=== PATIENT | female | born 1990 | race Two or more races ===

== ENCOUNTER 2018-11-19 18:45 | Emergency (ER) | payer OTHER ==
--- NOTE | 2018-11-19 18:57 | PDOC ---
History of Present Illness - History of Present Illness Initial Comments: 28yo F with PMH of PCOS presenting with nausea, vomiting, diarrhea, and abdominal pain. Patient states her symptoms started around 11am. She has over ten nonbloody nonbilious episodes of vomiting. Patient has had four or five episodes of nonbloody watery diarrhea. Abdominal pain is located in the suprapubic region. Pain is currently rated 10/10 and is described as "ripping. " Has not been able to tolerate po intake today. Has not recently eaten anything unusual except some 'alkaline water' yesterday. Patient took alleve and zantac at home today with minimal relief of symptoms. No history of abdominal surgeries. Denies urinary symptoms. She is currently on day two of her menstrual period. Has not been around anyone sick. No recent travel. Denies fever, but endorses chills. No chest pain or shortness of breath. <Lyssa Almazan - Last Filed: 11/20/18 00:06> <Kaylah Ponce - Last Filed: 11/20/18 00:58> - General Chief Complaint: Pain Stated Complaint: ABDOMINAL PAIN Time Seen by Provider: 11/19/18 18:56 Past History <Lyssa Almazan - Last Filed: 11/20/18 00:06> <Kaylah Ponce - Last Filed: 11/20/18 00:58> - Past Medical History Allergies/Adverse Reactions: Allergies Allergy/AdvReac Type Severity Reaction Status Date / Time No Known Allergies Allergy Verified 11/19/18 19:42 Home Medications: Ambulatory Orders NK [No Known Home Medication] 11/19/18 Review of Systems - Review of Systems Comments:: Constitutional: no fever, +chills HEENT: no throat pain, no dysphagia Cardiovascular: no chest pain, no palpitations Respiratory: no cough, no shortness of breath Gastrointestinal: +abdominal pain, +nausea Genitourinary: no dysuria, no hematuria Musculoskeletal: no myalgia, no arthralgia Skin: no rash, no itching Neurologic: no headache, +weakness <Lyssa Almazan - Last Filed: 11/20/18 00:06> *Physical Exam - Physical Exam Comments: General: Awake, alert, and fully oriented, in position, writhing in stretcher, actively retching Head: No signs of trauma Eyes: EOMI, sclera anicteric ENT: Dry mucus membranes Neck: Normal ROM, supple Lungs: Lungs clear, Normal breath sounds Cardio: Regular rhythm, S1 and S2 present Abdomen: Mild tenderness to palpation in suprapubic region. Soft, nondistended. No guarding, no rebound, no masses. Extremities: Normal range of motion, Distal pulses present SKIN: Warm, Dry, normal turgor Neurologic: Cranial nerves II through XII grossly intact. Normal speech <Lyssa Almazan - Last Filed: 11/20/18 00:06> - Vital Signs Last Vital Signs Temp Pulse Resp BP Pulse Ox 97.5 F L 92 H 18 123/65 97 11/19/18 19:44 11/19/18 19:44 11/19/18 19:44 11/19/18 19:44 11/19/18 19:44 <Kaylah Ponce - Last Filed: 11/20/18 00:58> ED Treatment Course - LABORATORY CBC & Chemistry Diagram: 11/19/18 19:16 11/19/18 19:16 <Lyssa Almazan - Last Filed: 11/20/18 00:06> - LABORATORY CBC & Chemistry Diagram: 11/19/18 19:16 11/19/18 19:16 - ADDITIONAL ORDERS Additional order review: Laboratory Results 11/19/18 11/19/18 19:16 19:16 Sodium 142 Potassium 3.7 Chloride 106 Carbon Dioxide 26 Anion Gap 9 BUN 14 Creatinine 0.9 Creat Clearance w eGFR 73.52 Random Glucose 123 H Calcium 9.7 Total Bilirubin 0.5 AST 33 ALT 36 Alkaline Phosphatase 33 L Total Protein 8.5 H Albumin 4.9 Lipase 80 Serum , Qual Negative 11/19/18 19:16 RBC 4.68 MCV 90.4 MCHC 33.6 RDW 12.7 MPV 7.5 Neutrophils % 93.8 H Lymphocytes % 3.2 L Monocytes % 2.6 L Eosinophils % 0.0 Basophils % 0.4 - RADIOLOGY Radiology Studies Ordered: Category Date Time Status ABDOMEN & PELVIS CT WITH CONTR [CT] Stat CT Scan 11/19/18 22:03 Taken TRANSVAGINAL ULTRASOUND US [US] Stat Ultrasound 11/19/18 21:06 Taken - Medications Given in the ED: ED Medications Discontinued Medications Generic Name Dose Route Start Last Admin Trade Name Zane PRN Reason Stop Dose Admin Acetaminophen 1,000 mg 11/19/18 19:14 11/19/18 19:41 Ofirmev Injection - IVPB 11/19/18 19:15 1,000 mg ONCE ONE Administration Diphenhydramine HCl 25 mg 11/19/18 20:00 11/19/18 20:18 Benadryl Injection - IVPB 11/19/18 20:01 25 mg ONCE ONE Administration Hydromorphone HCl 1 mg 11/19/18 22:03 11/19/18 23:21 Dilaudid Injection - IVPB 11/19/18 22:04 Not Given ONCE STA Hydromorphone HCl 0.5 mg 11/19/18 22:15 11/19/18 22:31 Dilaudid Injection - IVPB 11/19/18 22:16 0.5 mg ONCE STA Administration Famotidine/Sodium Chloride 20 mg in 50 mls @ 100 mls/hr 11/19/18 19:14 19:41 Pepcid 20 Mg Premixed Ivpb - IVPB 11/19/18 19:43 100 mls/hr ONCE ONE Administration Sodium Chloride 1,000 mls @ 1,000 mls/hr 11/19/18 19:14 11/19/18 19:41 Normal Saline - IV 11/19/18 20:13 1,000 mls/hr ASDIR STA Administration Sodium Chloride 1,000 mls @ 1,000 mls/hr 11/19/18 20:39 11/19/18 21:05 Normal Saline - IV 11/19/18 21:38 1,000 mls/hr ASDIR STA Administration Ketorolac Tromethamine 30 mg 11/19/18 20:57 11/19/18 21:05 Toradol Injection - IVPUSH 11/19/18 20:58 30 mg ONCE ONE Administration Morphine Sulfate 2 mg 11/19/18 19:59 11/19/18 20:18 Morphine Injection - IVPUSH 11/19/18 20:00 2 mg ONCE ONE Administration Ondansetron HCl 4 mg 11/19/18 19:14 11/19/18 19:41 Zofran Injection IVPUSH 11/19/18 19:15 4 mg ONCE ONE Administration Ondansetron HCl 4 mg 11/19/18 21:48 11/19/18 22:01 Zofran Injection IVPUSH 11/19/18 21:49 4 mg ONCE ONE Administration <Kaylah Ponce - Last Filed: 11/20/18 00:58> Medical Decision Making - Medical Decision Making 28yo F with PMH of PCOS presenting with nausea, vomiting, diarrhea, and abdominal pain. DDX including but not limited to CBC, CMP, Lipase, UA, UCx, UPreg Pepcid, Zofran, 1L NS, 1g Ofirmev Will reassess 11/19/18 19:02 Patient still complaining of excruciating pain. Ordered 25 diphenhydramine and 2mg morphine As she has not been able to give us a urine sample, ordered serum as an add-on. Lab notified. Patient's mother has repeatedly come up to physician's workstation, requesting additional pain medicine for the patient. Informed her that it is prudent that we need to give some time for the medications to work before administering another medication. Patient no longer actively retching 11/19/18 20:40 As I was trying to speak with another patient in a different stretcher, patient' s mother started butting in. When politely asked to step away, she refused stating "I'm not getting involved. I'm just advocating for her." 11/19/18 20:53 CBC WBC 20.2 K/mm3 (4.0-10.0) H 11/19/18 19:16 RBC 4.68 M/mm3 (3.60-5.2) 11/19/18 19:16 Hgb 14.2 GM/dL (10.7-15.3) 11/19/18 19:16 Hct 42.3 % (32.4-45.2) 11/19/18 19:16 MCV 90.4 fl (80-96) 11/19/18 19:16 MCH 30.3 pg (25.7-33.7) 11/19/18 19:16 MCHC 33.6 g/dl (32.0-36.0) 11/19/18 19:16 RDW 12.7 % (11.6-15.6) 11/19/18 19:16 Plt Count 297 K/MM3 (134-434) 11/19/18 19:16 MPV 7.5 fl (7.5-11.1) 11/19/18 19:16 Absolute Neuts (auto) 18.9 K/mm3 (1.5-8.0) H 11/19/18 19:16 Neutrophils % 93.8 % (42.8-82.8) H 11/19/18 19:16 Neutrophils % (Manual) 93.0 % (42.8-82.8) H 11/19/18 19:16 Band Neutrophils % 1.0 % 11/19/18 19:16 Lymphocytes % 3.2 % (8-40) L 11/19/18 19:16 Lymphocytes % (Manual) 2.0 % (8-40) L 11/19/18 19:16 Monocytes % 2.6 % (3.8-10.2) L 11/19/18 19:16 Monocytes % (Manual) 4 % (3.8-10.2) 11/19/18 19:16 Eosinophils % 0.0 % (0-4.5) 11/19/18 19:16 Eosinophils % (Manual) 0.0 % (0-4.5) 11/19/18 19:16 Basophils % 0.4 % (0-2.0) 11/19/18 19:16 Basophils % (Manual) 0.0 % (0-2.0) 11/19/18 19:16 Myelocytes % (Man) 0 % (0-2) 11/19/18 19:16 Promyelocytes % (Man) 0 % (0-2) 11/19/18 19:16 Blast Cells % (Manual) 0 % (0-0) 11/19/18 19:16 Nucleated RBC % 0 % (0-0) 11/19/18 19:16 Metamyelocytes 0 % (0-2) 11/19/18 19:16 Hypochromia 0 11/19/18 19:16 Platelet Estimate Normal 11/19/18 19:16 Platelet Comment Present 11/19/18 19:16 Polychromasia 0 11/19/18 19:16 Poikilocytosis 0 11/19/18 19:16 Anisocytosis 0 11/19/18 19:16 Microcytosis 0 11/19/18 19:16 Macrocytosis 0 11/19/18 19:16 Leukocytosis, WBC=20.2 Hgb=14.2 Serum negative Toradol ordered TVUS ordered 11/19/18 20:58 Patient with episode of significant vomiting while in ultrasound Another 4mg zofran 11/19/18 21:58 Patient's mother again coming over to physician workstation raising her voice": "My daughter is in excruciating pain. She is dying right now. You need to give her something else. Come over and see her. Nothing you've given her is helping. The morphine is not working." 0.5mg Dilaudid given Patient's mother demanding another IV line before going over to CT scan. We explained that we will flush the line and see if it is still working. TVUS: "Uterus is retroverted. Uterine dimensions are 7.0 x 3.7 x 4.2 cm. Endometrial stripe is normal in thickness measuring 0.2cm. Ovary dimensions are 3.1 x 2.2 x 2.4 cm for the right ovary and 3.0 x 1.4 x 1.7 cm for the left ovary. There is intact blood flow demonstrated to the ovaries. Arterial and venous spectral waveforms demonstrated. There is no evidence of torsion. There are bilateral subcentimeter ovarian follicles. There is no free fluid." Awaiting CTAP with contrast 11/19/18 23:25 Patient care assumed by Dr. Ponce 11/20/18 00:06 <Lyssa Almazan - Last Filed: 11/20/18 00:06> *DC/Admit/Observation/Transfer <Lyssa Almazan - Last Filed: 11/20/18 00:06> <Kaylah Ponce - Last Filed: 11/20/18 00:58> Diagnosis at time of Disposition: Ovarian cyst Qualifiers: Laterality: right Qualified Code(s): N83.201 - Unspecified ovarian cyst, right side - Discharge Dispostion Disposition: HOME Condition at time of disposition: Stable - Referrals Referrals: Ayana Chino DO [Staff Physician] - - Patient Instructions Printed Discharge Instructions: DI for Ovarian Cyst Additional Instructions: please follow up with your custom miller
[2018-11-19] MEDS ORDERED: FAMOTIDINE 20 MG/50 ML IVPB 20 MG/50 ML MG IVPB ONE (19:14)
[2018-11-19] MEDS ORDERED: ONDANSETRON 4 MG/2 ML VIAL IVPUSH ONE ×2 (19:14→21:48)
[2018-11-19] MEDS ORDERED: SODIUM CHLORIDE 1,000 ML IV STA ×2 (19:14→20:39)
[2018-11-19] MEDS ORDERED: ACETAMINOPHEN 1000 MG/100 ML VIAL (NON FORMULARY) IVPB ONE (19:14)
[2018-11-19 19:27] LABS: BASO % 0.4 % (0-2.0); HEMATOCRIT 42.3 % (32.4-45.2); HEMOGLOBIN 14.2 GM/dL (10.7-15.3); LYMPH % 3.2 % (8-40); MCH 30.3 pg (25.7-33.7); MCHC 33.6 g/dl (32.0-36.0); MEAN CELL VOLUME 90.4 fl (80-96); MEAN PLT VOLUME 7.5 fl (7.5-11.1); MONO % 2.6 % (3.8-10.2); NEUT % 93.8 % (42.8-82.8); PLATELET COUNT 297 K/MM3 (134-434); RBC 4.68 M/mm3 (3.60-5.2); RDW 12.7 % (11.6-15.6); WHITE BLOOD COUNT 20.2 K/mm3 (4.0-10.0)
[2018-11-19 19:49] VITALS: TEMP 97.5; BMI 20.3
[2018-11-19 19:51] LABS: ALBUMIN 4.9 g/dl (3.4-5.0); ALK PHOS 33 U/L (45-117); ANION GAP 9 MMOL/L (8-16); BILIRUBIN,TOTAL 0.5 mg/dL (0.2-1); BLOOD UREA NITROGEN 14 mg/dL (7-18); CALCIUM 9.7 mg/dL (8.5-10.1); CHLORIDE 106 mmol/L (98-107); CO2 26 mmol/L (21-32); CREATININE 0.9 mg/dL (0.55-1.3); GLUCOSE,RANDOM 123 mg/dL (74-106); LIPASE 80 U/L (73-393); POTASSIUM 3.7 mmol/L (3.5-5.1); SGOT/AST 33 U/L (15-37); SGPT/ALT 36 U/L (13-61); SODIUM 142 mmol/L (136-145); TOT PROT 8.5 g/dl (6.4-8.2)
[2018-11-19] MEDS ORDERED: morphine CARPU-JECT 2 MG/1 ML DISP.SYRIN IVPUSH ONE (19:59)
[2018-11-19] MEDS ORDERED: morphine SULFATE 4 MG/ML VIAL ONE (20:02)
[2018-11-19 20:11] LABS: ANISOCYTOSIS 0; MACROCYTOSIS 0; PLATELET ESTIMATE NORMAL
[2018-11-19] MEDS ORDERED: KETOROLAC TROMETHAMINE 30 MG/1 ML VIAL IVPUSH ONE (20:57)
[2018-11-19] MEDS ORDERED: KETOROLAC TROMETHAMINE 30 MG/1 ML VIAL ONE (20:59)
[2018-11-19] MEDS ORDERED: ONDANSETRON 4 MG/2 ML VIAL ONE (21:58)
[2018-11-19] MEDS ORDERED: HYDROmorphone HCL CARPU-JECT 2 MG/1 ML DISP.SYRIN IVPB STA ×2 (22:03→22:15)
[2018-11-19] MEDS ORDERED: HYDROmorphone HCl 2 MG/ML VIAL ONE (22:19)
[2018-11-20 01:19] VITALS: BP 99/72; PULSE 95
--- NOTE | 2018-11-20 02:04 | PDOC ---
Documentation entered by Khanh Johns SCRIBE, acting as scribe for Kaylah Ponce MD. Kaylah Ponce MD: This documentation has been prepared by the Andreas singletary Daniel, SCRIBE, under my direction and personally reviewed by me in its entirety. I confirm that the documentation accurately reflects all work, treatment, procedures, and medical decision making performed by me. Attending Attestation - Resident Resident Name: Lyssa Almazan - ED Attending Attestation I have performed the following: I have examined & evaluated the patient, The case was reviewed & discussed with the resident, I agree w/resident's findings & plan, Exceptions are as noted - HPI HPI: 11/19/18 20:06 The patient is a 28 year old female with a past medical history of PCOS here today for evaluation of vomiting and abdominal pain. The patient reports that she has had 10 episodes of bilious vomiting since 11PM last night. She also notes abdominal pain in the suprapubic area and nausea. Patient denies headache, lightheadedness. Denies fever, chills. Denies chest pain, shortness of breath. Denies diarrhea. Allergies: NKA - Physicial Exam PE: 11/19/18 20:22 very agitated,distressed 28 yo female BIBA from home for nausea and vomiting x 1 day head ncat neck supple lung cta b/l cvs [id number] abd flat, no rebound but has diffuse discomfort pelvic suprapubic tenderness extremities no erythema,no rashes,no deformities no cva tenderness skin warm and dry neuro axox3, moving all extremities psych anxious,distressed 11/19/18 21:29 - Medical Decision Making pelvic US:there is NO evidence of ovarian torsion,uterus retroverted,normal endometrial stripe,no free fluid,bilateral subcentimeter follicles 11/19/18 21:30 pt is afebrile negative test Lab review reveals a leukocytosis chemistries glucose =123, normal renal function 11/20/18 00:39 Scan of abdomen and pelvis with contrast findings -Lung bases are clear Visualize cardiac chambers are normal in size. Normal liver, gallbladder, pancreas, spleen, adrenal glands and kidneys His stomach and abdominal small and large bowel are normal. There is no aortic aneurysm. There is no significant retroperitoneal lymphadenopathy. Pelvic small large bowel are normal. The appendix is normal. There is a 1.6 cm involuting right ovarian cyst noted. The uterus and left adnexal structures are normal. Urinary bladder is unremarkable. There is a small amount of pelvic free fluid. No discrete pelvic lymphadenopathy is identified. The only localized findings is the right ovarian cyst. Otherwise, there was no acute pathology Patient has intermittent pelvic pain and a history of PCOS and it was recommended she follow up with her CUT OUT STITCHER 11/20/18 00:41 IMP ovarian cysts/gastritis plan: follow up CUT OUT STITCHER 11/20/18 02:00
== END 2018-11-20 01:19 | disposition home or self-care (01) ==
LOC: JER 18:45
PROC: 3E033GC Introduction of Other Therapeutic Substance into Peripheral Vein, Percutaneous Approach (ICD-10-PCS; principal; 2018-11-19)
PROC: 3E033NZ Introduction of Analgesics, Hypnotics, Sedatives into Peripheral Vein, Percutaneous Approach (ICD-10-PCS; 2018-11-19)
PROC: 3E0333Z Introduction of Anti-inflammatory into Peripheral Vein, Percutaneous Approach (ICD-10-PCS; 2018-11-19)
PROC: 3E033GC Introduction of Other Therapeutic Substance into Peripheral Vein, Percutaneous Approach (ICD-10-PCS; 2018-11-19)
PROC: 3E033NZ Introduction of Analgesics, Hypnotics, Sedatives into Peripheral Vein, Percutaneous Approach (ICD-10-PCS; 2018-11-19)
PROC: 3E0337Z Introduction of Electrolytic and Water Balance Substance into Peripheral Vein, Percutaneous Approach (ICD-10-PCS; 2018-11-19)
PROC: 3E033GC Introduction of Other Therapeutic Substance into Peripheral Vein, Percutaneous Approach (ICD-10-PCS; 2018-11-19)
PROC: 3E033GC Introduction of Other Therapeutic Substance into Peripheral Vein, Percutaneous Approach (ICD-10-PCS; 2018-11-19)
DX: N83.201 Unspecified ovarian cyst, right side (principal)
CPT/HCPCS: 36415; 74177-TC; 76830-TC; 80053; 83690; 84703; 85025; 99283-25; J0131; J7030

== ENCOUNTER 2019-04-24 19:23 | Emergency (ER) | payer OTHER ==
[2019-04-24 19:46] VITALS: BMI 20.3
[2019-04-24] MEDS ORDERED: ONDANSETRON 4 MG/2 ML VIAL IVPB ONE ×2 (19:48→19:53)
[2019-04-24] MEDS ORDERED: FAMOTIDINE 20 MG/50 ML IVPB 20 MG/50 ML MG IVPB ONE ×2 (19:48→20:12)
[2019-04-24] MEDS ORDERED: SODIUM CHLORIDE 1,000 ML IV STA (19:48)
[2019-04-24] MEDS ORDERED: ACETAMINOPHEN 1000 MG/100 ML VIAL (NON FORMULARY) IVPB ONE (19:52)
[2019-04-24] MEDS ORDERED: KETOROLAC TROMETHAMINE 30 MG/1 ML VIAL IVPUSH ONE (19:54)
--- NOTE | 2019-04-24 19:57 | PDOC ---
Attending Attestation - Resident Resident Name: Maira Grayson - ED Attending Attestation I have performed the following: I have examined & evaluated the patient, The case was reviewed & discussed with the resident, I agree w/resident's findings & plan, Exceptions are as noted - HPI HPI: 04/24/19 19:54 this 28 yo female p/w nausea and vomiting and currently started her menstrual cycle. She also uses marijuana frequently HPI her mother states she has had this before when she is having her menstruation - Physicial Exam PE: 04/24/19 19:55 slender 29 yo female who is actively retching head ncat lungs cta b/l cvs tachycardia abd no rebound skin warm and dry extremities no deformities neuro axox3,no gross focal neuro deficits 04/24/19 20:33 04/24/19 22:30 pelvic exam: blood in vaginal vault - Medical Decision Making 04/24/19 19:57 diff diag includes gastritis, cyclical vomiting due to THC,cholecystitis, PID plan antiemetics,IV fluids,preg test, reassess 04/24/19 22:42 pelvic done and cultures sent pt encouraged to follow up with her decorator consultant since she often had nausea and vomiting associated with her menses 04/24/19 23:20 pt feeling much better and will be d/c home
[2019-04-24] MEDS ORDERED: ACETAMINOPHEN INJECTION 100 ML IVPB ONE (20:11)
[2019-04-24] MEDS ORDERED: KETOROLAC TROMETHAMINE 15 MG/ML VIAL ONE (20:11)
[2019-04-24] MEDS ORDERED: ONDANSETRON 4 MG/2 ML VIAL ONE (20:11)
[2019-04-24 20:28] LABS: BASO % 0.2 % (0-2.0); HEMATOCRIT 43.1 % (32.4-45.2); HEMOGLOBIN 14.3 GM/dL (10.7-15.3); LYMPH % 5.2 % (8-40); MCHC 33.1 g/dl (32.0-36.0); MEAN CELL VOLUME 90.5 fl (80-96); MEAN PLT VOLUME 7.7 fl (7.5-11.1); MONO % 3.8 % (3.8-10.2); NEUT % 90.8 % (42.8-82.8); PLATELET COUNT 306 K/MM3 (134-434); RBC 4.77 M/mm3 (3.60-5.2); RDW 12.7 % (11.6-15.6); WHITE BLOOD COUNT 16.5 K/mm3 (4.0-10.0)
[2019-04-24 20:58] LABS: ALBUMIN 4.6 g/dl (3.4-5.0); ALK PHOS 33 U/L (45-117); ANION GAP 10 MMOL/L (8-16); BILIRUBIN,TOTAL 0.5 mg/dL (0.2-1); BLOOD UREA NITROGEN 11.7 mg/dL (7-18); CALCIUM 9.7 mg/dL (8.5-10.1); CHLORIDE 108 mmol/L (98-107); CO2 24 mmol/L (21-32); GLUCOSE,RANDOM 116 mg/dL (74-106); POTASSIUM 3.7 mmol/L (3.5-5.1); SGOT/AST 19 U/L (15-37); SGPT/ALT 21 U/L (13-61); SODIUM 142 mmol/L (136-145); TOT PROT 8.2 g/dl (6.4-8.2)
[2019-04-24] MEDS ORDERED: morphine CARPU-JECT 4 MG/1 ML DISP.SYRIN IVPUSH ONE ×2 (21:13→21:37)
[2019-04-24] MEDS ORDERED: MORPHINE SULFATE 2 MG/ML VIAL ONE ×2 (21:20→21:34)
--- NOTE | 2019-04-24 21:37 | PDOC ---
History of Present Illness - General Chief Complaint: Nausea/Vomiting Stated Complaint: ABDOMINAL PAIN Time Seen by Provider: 04/24/19 19:39 History Source: Patient, Family Exam Limitations: No Limitations - History of Present Illness Travel History: No Initial Comments: 04/24/19 21:43 28yo F with PMH of PCOS presenting to ED with sudden onset nausea, vomiting and abdominal pain. Pt states that she usually gets these symptoms when she is menstruating, this is currently day 1 of the cycle. LMP was one month ago. She states that she developed lower abdominal pain and took Motrin but then realized it was . She then started vomiting (nbnb) x10 and feeling nauseous. Endorses diarrhea. Pain is 10/10, lower abdomen but radiates all around the abdomen. She denies recent travel, eating contaminated foods, fever, urinary symptoms, chest pain, sob. She smokes "1 bag" of marijuana daily. Denies history of STDs, no previous surgeries. Past History - Past Medical History Allergies/Adverse Reactions: Allergies Allergy/AdvReac Type Severity Reaction Status Date / Time No Known Allergies Allergy Verified 04/24/19 19:25 Home Medications: Ambulatory Orders Famotidine [Pepcid -] 20 mg PO BID #14 tablet 04/24/19 Ibuprofen 800 mg PO TID #21 tablet 04/24/19 Ondansetron [Zofran *Odt*] 4 mg SL TID #21 od.tablet 04/24/19 COPD: No - Reproductive History Is Patient Now?: No - Immunization History Immunization Up to Date: Yes - Psycho Social/Smoking Cessation Hx Smoking History: Current some day smoker Information on smoking cessation initiated: No Hx Alcohol Use: No Drug/Substance Use Hx: No Review of Systems - Review of Systems Constitutional: No: Chills, Fever HEENTM: No: Symptoms Reported Respiratory: No: Symptoms reported Cardiac (ROS): No: Symptoms Reported ABD/GI: Yes: See HPI : No: Dysuria, Discharge, Hematuria, Urgency Musculoskeletal: No: Symptoms Reported Integumentary: No: Symptoms Reported Neurological: No: Symptoms reported *Physical Exam - Vital Signs Last Vital Signs Temp Pulse Resp BP Pulse Ox 98.2 F 90 18 106/74 96 04/24/19 19:44 04/24/19 19:44 04/24/19 19:44 04/24/19 19:44 04/24/19 19:44 - Physical Exam General Appearance: Yes: Nourished, Appropriately Dressed, Moderate Distress HEENT: positive: EOMI, BRITTANY Neck: positive: Trachea midline, Supple. negative: Lymphadenopathy (R), Lymphadenopathy (L) Respiratory/Chest: positive: Lungs Clear, Normal Breath Sounds Cardiovascular: positive: Regular Rhythm, Regular Rate, S1, S2. negative: Edema , JVD, Murmur Female Pelvic Exam: positive: normal external exam, vaginal bleeding. negative : CMT, adnexal tenderness Gastrointestinal/Abdominal: positive: Normal Bowel Sounds, Soft, Tenderness ( diffuse tenderness) Musculoskeletal: negative: CVA Tenderness Extremity: positive: Normal Capillary Refill. negative: Pedal Edema Integumentary: positive: Normal Color, Dry, Warm Neurologic: positive: licensed practical nurse clinic nurse II-XII NML intact, Fully Oriented, Alert, Normal Mood/ Affect, Normal Response, Motor Strength /5 ED Treatment Course - LABORATORY CBC & Chemistry Diagram: 04/24/19 20:00 04/24/19 20:00 - ADDITIONAL ORDERS Additional order review: Laboratory Results 04/24/19 04/24/19 20:00 20:00 Sodium 142 Potassium 3.7 Chloride 108 H Carbon Dioxide 24 Anion Gap 10 BUN 11.7 Creatinine 1.0 Est GFR (CKD-EPI)AfAm 87.55 Est GFR (CKD-EPI)NonAf 75.54 Random Glucose 116 H Calcium 9.7 Total Bilirubin 0.5 AST 19 ALT 21 Alkaline Phosphatase 33 L Total Protein 8.2 Albumin 4.6 Lipase 65 L 04/24/19 20:00 RBC 4.77 MCV 90.5 MCHC 33.1 RDW 12.7 MPV 7.7 Neutrophils % 90.8 H Lymphocytes % 5.2 L D Monocytes % 3.8 Eosinophils % 0.0 Basophils % 0.2 - Medications Given in the ED: ED Medications Discontinued Medications Generic Name Dose Route Start Last Admin Trade Name Freq PRN Reason Stop Dose Admin Acetaminophen 1,000 mg 04/24/19 19:52 04/24/19 20:28 Ofirmev Injection - IVPB 04/24/19 19:53 1,000 mg ONCE ONE Administration Famotidine/Sodium Chloride 20 mg in 50 mls @ 100 mls/hr 04/24/19 19:48 20:28 Pepcid 20 Mg Premixed Ivpb - IVPB 04/24/19 20:17 100 mls/hr ONCE ONE Administration Sodium Chloride 1,000 mls @ 1,000 mls/hr 04/24/19 19:48 04/24/19 20:27 Normal Saline - IV 04/24/19 20:47 1,000 mls/hr ASDIR STA Administration Ketorolac Tromethamine 15 mg 04/24/19 19:54 04/24/19 20:28 Toradol Injection - IVPUSH 04/24/19 19:55 15 mg ONCE ONE Administration Morphine Sulfate 2 mg 04/24/19 21:13 04/24/19 21:27 Morphine Injection - IVPUSH 04/24/19 21:14 2 mg ONCE ONE Administration Ondansetron HCl 8 mg 04/24/19 19:53 04/24/19 20:28 Zofran Injection IVPB 04/24/19 19:54 8 mg ONCE ONE Administration Medical Decision Making - Medical Decision Making 04/24/19 22:06 28yo F with PCOS presenting with abdominal pain, n/v/d and day one of cycle. Has had same symptoms previously. Pt was seen here previously with same complaints and negative workup. ddx includes but not limited to gastritis, cholecystitis, appendicitis, uti, pid , toa, ectopic, colitis. low suspicion for sbo given no h/o surgeries. labs including lipase. fluids, zofran, pepcid, ofirmev. pt still in pain, will order morphine. still vomiting, will order benadryl. pt refusing TVUS; same symptoms in the past. labs show leukocytosis likely reactive. afebrile, low suspicion for appendicitis. all other labs wnl. 04/24/19 23:27 pt having resolution of symptoms, no acute distress wants to go home. will dc home. given rx for zofran, pepcid and ibuprofen. Pt has plan to see algorithm developer tomorrow. given return precautions. Discharge - Discharge Information Problems reviewed: Yes Clinical Impression/Diagnosis: Abdominal pain Qualifiers: Abdominal location: unspecified location Qualified Code(s): R10.9 - Unspecified abdominal pain Nausea & vomiting Qualifiers: Vomiting type: unspecified Vomiting Intractability: non-intractable Qualified Code(s): R11.2 - Nausea with vomiting, unspecified Condition: Good Disposition: HOME - Admission No - Additional Discharge Information Prescriptions: Famotidine [Pepcid -] 20 mg PO BID #14 tablet Ibuprofen 800 mg PO TID #21 tablet Ondansetron [Zofran *Odt*] 4 mg SL TID #21 od.tablet - Follow up/Referral - Patient Discharge Instructions Patient Printed Discharge Instructions: DI for Nausea -- Adult, DI for Vomiting -- Adult Additional Instructions: You were seen in the emergency room today for abdominal pain, nausea and vomiting. The GC results won't come back for 2 days, you will get a phone call if the results are positive. Please come back to the emergency room if the results are positive. I recommend that you make an appointment with your Bedspread Cutter to assess your pain, this is likely due to menstruation. A prescription for ibuprofen, Zofran, and Pepcid were sent to your pharmacy. Please take ibuprofen with food. Come back to the emergency room for worsening pain, continuous vomiting, fevers , or if any new concerning symptom develops. Thank you - Post Discharge Activity
[2019-04-24] MEDS ORDERED: LORazepam 2 MG/ML SDV VIAL ONE (23:17)
[2019-04-24 23:42] VITALS: BP 110/72; PULSE 82; TEMP 97.9
== END 2019-04-24 23:41 | disposition home or self-care (01) ==
LOC: JER 19:23
PROC: 3E033NZ Introduction of Analgesics, Hypnotics, Sedatives into Peripheral Vein, Percutaneous Approach (ICD-10-PCS; principal; 2019-04-24)
PROC: 3E033GC Introduction of Other Therapeutic Substance into Peripheral Vein, Percutaneous Approach (ICD-10-PCS; 2019-04-24)
PROC: 3E0333Z Introduction of Anti-inflammatory into Peripheral Vein, Percutaneous Approach (ICD-10-PCS; 2019-04-24)
PROC: 3E0337Z Introduction of Electrolytic and Water Balance Substance into Peripheral Vein, Percutaneous Approach (ICD-10-PCS; 2019-04-24)
DX: R10.9 Unspecified abdominal pain (principal); R11.2 Nausea with vomiting, unspecified; E28.2 Polycystic ovarian syndrome
CPT/HCPCS: 36415; 80053; 83690; 84702; 85025; 87491; 87591; 99283-25; J0131; J7030

== ENCOUNTER 2021-04-07 17:24 | Emergency (ER) | payer OTHER ==
[2021-04-07] MEDS ORDERED: ONDANSETRON 4 MG/2 ML VIAL IVPUSH ONE (17:55)
[2021-04-07] MEDS ORDERED: ACETAMINOPHEN 1000 MG/100 ML VIAL IVPB ONE (17:55)
[2021-04-07] MEDS ORDERED: FAMOTIDINE 20 MG/50 ML IVPB 20 MG/50 ML MG IVPB ONE ×2 (17:55→18:09)
[2021-04-07] MEDS ORDERED: SODIUM CHLORIDE 1,000 ML IV STA (17:55)
[2021-04-07] MEDS ORDERED: ONDANSETRON 4 MG/2 ML VIAL ONE (18:09)
[2021-04-07] MEDS ORDERED: ACETAMINOPHEN INJECTION 100 ML IVPB ONE (18:09)
[2021-04-07 18:23] VITALS: BMI 23.5
[2021-04-07 18:42] LABS: HEMATOCRIT 40.2 % (32.4-45.2); HEMOGLOBIN 14.1 GM/dL (10.7-15.3); MCH 31.1 pg (25.7-33.7); MEAN CELL VOLUME 88.8 fl (80-96); MEAN PLT VOLUME 7.5 fl (7.5-11.1); PLATELET COUNT 290 10^3/uL (134-434); RBC 4.52 M/mm3 (3.60-5.2); WHITE BLOOD COUNT 20.3 K/mm3 (4.0-10.0)
[2021-04-07 18:50] LABS: INR 1.08 (0.83-1.09); PROTHROMBIN TIME (PATIENT) 13.2 SEC (9.7-13.0)
[2021-04-07 19:02] LABS: ALBUMIN 4.4 g/dl (3.4-5.0); BLOOD UREA NITROGEN 12.4 mg/dL (7-18); CALCIUM 9.7 mg/dL (8.5-10.1); MAGNESIUM 2.1 mg/dL (1.8-2.4)
[2021-04-07] MEDS ORDERED: LORazepam 2 MG/ML SDV VIAL IVPUSH ONE ×2 (19:03→23:43)
[2021-04-07 19:06] LABS: BILIRUBIN,TOTAL 0.6 mg/dL (0.2-1); TOT PROT 8.1 g/dl (6.4-8.2)
[2021-04-07] MEDS ORDERED: LORazepam 2 MG/ML SDV VIAL ONE ×2 (19:18→23:56)
[2021-04-07 20:26] LABS: ANISOCYTOSIS 0; MACROCYTOSIS 0; PLATELET ESTIMATE NORMAL
[2021-04-07 22:52] LABS: EPI CELLS >36 /uL (0-25.1); HYALINE CASTS 8 /uL (0-3.1); URINE APPEARANCE CLOUDY; URINE BILIRUBIN NEGATIVE (NEGATIVE); URINE COLOR DK YELLOW; URINE GLUCOSE (UA) NEGATIVE (NEGATIVE); URINE KETONE 3+ (NEGATIVE); URINE LEUK ESTERASE NEGATIVE (NEGATIVE); URINE NITRITE NEGATIVE (NEGATIVE); URINE PROTEIN 2+ (NEGATIVE); URINE RBC 215 /uL (0-23.9); URINE WBC 53 /uL (0-25.8)
[2021-04-07 23:16] LABS: URINE BACTERIA 695.2 /uL (0-1359)
[2021-04-07] MEDS ORDERED: KETOROLAC TROMETHAMINE 15 MG/ML VIAL IVPUSH ONE (23:42)
[2021-04-07] MEDS ORDERED: KETOROLAC TROMETHAMINE 15 MG/ML VIAL ONE (23:56)
[2021-04-08] MEDS ORDERED: METOCLOPRAMIDE HCL INJECTION 10 MG/2 ML VIAL IVPUSH PRN (02:18)
[2021-04-08] MEDS ORDERED: FOLIC ACID INJECTION - 1 MG, THIAMINE HCL 100 MG, MULTIVIT INJECTION ADULT 10 ML in SOD... IVPB ONE (02:19)
[2021-04-08] MEDS ORDERED: LORazepam 1 MG TABLET PO PRN (02:19)
[2021-04-08] MEDS ORDERED: SODIUM CHLORIDE 1,000 ML IV SCH (02:30)
[2021-04-08 03:16] VITALS: BP 128/70; PULSE 65; TEMP 98
[2021-04-08] MEDS ORDERED: ENOXAPARIN NA (PORCINE) 40 MG/0.4 ML DISP.SYRIN SQ SCH (10:00)
[2021-04-08] MEDS ORDERED: THIAMINE HCL 200 MG/2 ML VIAL IVPB SCH (10:00)
[2021-04-08] MEDS ORDERED: FOLIC ACID 1 MG TABLET (FP) PO SCH (10:00)
[2021-04-09] MEDS ORDERED: LORazepam 1 MG TABLET PO SCH (05:00)
[2021-04-10] MEDS ORDERED: LORazepam 0.5 MG TABLET PO PRN
== END 2021-04-08 03:17 | disposition home or self-care (01) ==
LOC: JER 17:24
PROC: 3E0333Z Introduction of Anti-inflammatory into Peripheral Vein, Percutaneous Approach (ICD-10-PCS; principal; 2021-04-07)
PROC: 3E033GC Introduction of Other Therapeutic Substance into Peripheral Vein, Percutaneous Approach (ICD-10-PCS; 2021-04-07)
PROC: 3E0333Z Introduction of Anti-inflammatory into Peripheral Vein, Percutaneous Approach (ICD-10-PCS; 2021-04-07)
PROC: 3E033NZ Introduction of Analgesics, Hypnotics, Sedatives into Peripheral Vein, Percutaneous Approach (ICD-10-PCS; 2021-04-07)
PROC: 3E033NZ Introduction of Analgesics, Hypnotics, Sedatives into Peripheral Vein, Percutaneous Approach (ICD-10-PCS; 2021-04-07)
PROC: 3E033GC Introduction of Other Therapeutic Substance into Peripheral Vein, Percutaneous Approach (ICD-10-PCS; 2021-04-07)
PROC: 3E033GC Introduction of Other Therapeutic Substance into Peripheral Vein, Percutaneous Approach (ICD-10-PCS; 2021-04-07)
PROC: 3E0337Z Introduction of Electrolytic and Water Balance Substance into Peripheral Vein, Percutaneous Approach (ICD-10-PCS; 2021-04-07)
DX: R11.2 Nausea with vomiting, unspecified (principal); R10.9 Unspecified abdominal pain; F12.90 Cannabis use, unspecified, uncomplicated
CPT/HCPCS: 36415; 74177-TC; 76830-TC; 80053; 81003; 83690; 83735; 84703; 85025; 85610; 85730; 86850; 86900; 86901; 87086; 93005; 93010; 99285-25; C9803; J0131; Q9967; U0003; U0005

== ENCOUNTER 2022-02-20 09:57 | Emergency (ER) | payer OTHER ==
[2022-02-20 10:10] VITALS: BP 124/70; PULSE 81; RESP 18; TEMP 97.8; BMI 20.3
[2022-02-20] MEDS ORDERED: SODIUM CHLORIDE 1,000 ML IV STA (10:19)
[2022-02-20] MEDS ORDERED: ONDANSETRON 4 MG/2 ML VIAL IVPUSH ONE (10:19)
[2022-02-20] MEDS ORDERED: FAMOTIDINE 20 MG/50 ML IVPB 20 MG/50 ML MG IVPB ONE ×2 (10:19→10:47)
[2022-02-20] MEDS ORDERED: ACETAMINOPHEN 1000 MG/100 ML BAG IVPB ONE (10:19)
[2022-02-20] MEDS ORDERED: LORazepam 2 MG/ML SDV VIAL IVPUSH ONE (10:23)
[2022-02-20] MEDS ORDERED: KETOROLAC TROMETHAMINE 15 MG/ML VIAL IVPUSH ONE (10:31)
[2022-02-20] MEDS ORDERED: KETOROLAC TROMETHAMINE 15 MG/ML VIAL ONE (10:35)
[2022-02-20] MEDS ORDERED: ONDANSETRON 4 MG/2 ML VIAL ONE (10:35)
[2022-02-20 10:51] LABS: BASO % 0.3 % (0-2.0); EOS % 0.4 % (0-4.5); HEMATOCRIT 41.1 % (32.4-45.2); HEMOGLOBIN 13.9 GM/dL (10.7-15.3); LYMPH % 9.5 % (8-40); MCH 30.4 pg (25.7-33.7); MCHC 33.8 g/dl (32.0-36.0); MEAN CELL VOLUME 90.1 fl (80-96); MEAN PLT VOLUME 7.1 fl (7.5-11.1); MONO % 4.4 % (3.8-10.2); NEUT % 85.4 % (42.8-82.8); PLATELET COUNT 317 10^3/uL (134-434); RBC 4.56 M/mm3 (3.60-5.2); RDW 12.9 % (11.6-15.6); WHITE BLOOD COUNT 13.1 K/mm3 (4.0-10.0)
[2022-02-20 11:17] LABS: CALCIUM 9.4 mg/dL (8.5-10.1)
[2022-02-20 11:18] LABS: ALBUMIN 4.4 g/dl (3.4-5.0); BLOOD UREA NITROGEN 9.8 mg/dL (7-18); MAGNESIUM 2.4 mg/dL (1.8-2.4)
[2022-02-20 11:21] LABS: CREATININE 0.9 mg/dL (0.55-1.3); PHOSPHOROUS 3.1 mg/dL (2.5-4.9)
[2022-02-20 11:22] LABS: BILIRUBIN,TOTAL 0.3 mg/dL (0.2-1); TOT PROT 8.3 g/dl (6.4-8.2)
[2022-02-20 12:29] LABS: EPI CELLS 1 /uL (0-25.1); HYALINE CASTS 0 /uL (0-3.1); PH,URINE >= 9.0 (5.0-8.0); URINE APPEARANCE CLEAR; URINE BACTERIA 62 /uL (0-1359); URINE BILIRUBIN NEGATIVE (NEGATIVE); URINE COLOR ORANGE; URINE GLUCOSE (UA) NEGATIVE (NEGATIVE); URINE KETONE NEGATIVE (NEGATIVE); URINE LEUK ESTERASE 1+ (NEGATIVE); URINE NITRITE NEGATIVE (NEGATIVE); URINE PROTEIN 4+ (NEGATIVE); URINE RBC 106 /uL (0-23.9); URINE WBC 3 /uL (0-25.8)
[2022-02-20 12:32] LABS: HCG,QUALITATIVE URINE Negative
== END 2022-02-20 14:00 | disposition home or self-care (01) ==
LOC: JER 09:57
PROC: 3E033GC Introduction of Other Therapeutic Substance into Peripheral Vein, Percutaneous Approach (ICD-10-PCS; principal; 2022-02-20)
DX: R11.2 Nausea with vomiting, unspecified (principal)
CPT/HCPCS: 36415; 76705-TC; 80053; 81003; 83690; 83735; 84100; 84703; 85025; 99284-25

== ENCOUNTER 2023-12-14 11:45 | Emergency (ER) | payer OTHER ==
[2023-12-14 11:53] VITALS: BP 107/74; PULSE 77; RESP 16; TEMP 97.4; BMI 23.5
[2023-12-14] MEDS ORDERED: ONDANSETRON 4 MG/2 ML VIAL ONE (12:34)
[2023-12-14] MEDS: ONDANSETRON 4 MG/2 ML VIAL IVPUSH ONE (12:40)
[2023-12-14] MEDS: SODIUM CHLORIDE 0.9% 500 ML INFUS.BAG IV ONE (13:25)
[2023-12-14] MEDS ORDERED: HALOPERIDOL LACTATE 5 MG/ML ONE (13:28)
[2023-12-14] MEDS: HALOPERIDOL LACTATE 5 MG/ML IM ONE (13:35)
[2023-12-14 14:06] LABS: BASO % 0.3 % (0-2.0); EOS % 0.2 % (0-4.5); HEMATOCRIT 40.5 % (32.4-45.2); HEMOGLOBIN 13.8 GM/dL (10.7-15.3); LYMPH % 14.8 % (8-40); MCH 30.8 pg (25.7-33.7); MCHC 34.1 g/dl (32.0-36.0); MEAN CELL VOLUME 90.1 fl (80-96); MEAN PLT VOLUME 7.4 fl (7.5-11.1); MONO % 3.5 % (3.8-10.2); NEUT % 81.2 % (42.8-82.8); PLATELET COUNT 337 10^3/uL (134-434); RBC 4.49 M/mm3 (3.60-5.2); WHITE BLOOD COUNT 19.9 K/mm3 (4.0-10.0)
[2023-12-14 14:35] LABS: POTASSIUM 3.6 mmol/L (3.5-5.1)
[2023-12-14 14:36] LABS: ALBUMIN 4.2 g/dl (3.4-5.0); CALCIUM 9.4 mg/dL (8.5-10.1)
[2023-12-14 14:37] LABS: BLOOD UREA NITROGEN 9.4 mg/dL (7-18); MAGNESIUM 2.4 mg/dL (1.8-2.4)
[2023-12-14 14:41] LABS: BILIRUBIN,TOTAL 0.3 mg/dL (0.2-1)
== END 2023-12-14 15:11 | disposition left against medical advice (07) ==
LOC: JER 11:45
PROC: 3E033GC Introduction of Other Therapeutic Substance into Peripheral Vein, Percutaneous Approach (ICD-10-PCS; principal; 2023-12-14)
PROC: 3E023GC Introduction of Other Therapeutic Substance into Muscle, Percutaneous Approach (ICD-10-PCS; 2023-12-14)
DX: R11.2 Nausea with vomiting, unspecified (principal); R19.7 Diarrhea, unspecified
CPT/HCPCS: 36415; 80053; 83690; 83735; 84703; 85025; 93005; 93010; 99284-25